=== PATIENT | female | born 1970 ===

== ENCOUNTER 2023-04-08 12:53 | Emergency (ER) | payer OTHER ==
[~2023-04-08] VITALS: Wt 112.5 kg
[2023-04-08] MEDS ORDERED: PENICILLIN-VK500 MG PO (14:20)
[2023-04-08] MEDS ORDERED: Motrin,Rufen800 MG PO (14:28)
== END 2023-04-08 14:44 | disposition home or self-care (01) ==
LOC: ED 12:53
DX: K06.9 Disorder of gingiva and edentulous alveolar ridge, unspecified (principal); I10 Essential (primary) hypertension

== ENCOUNTER 2025-05-03 15:22 | Emergency (ER) | payer OTHER ==
[~2025-05-03] VITALS: Ht 147.3 cm; Wt 107.0 kg
[~2025-05-03 15:22] MED LIST: Motrin,Rufen800 MG PO; PENICILLIN-VK500 MG PO
== END 2025-05-03 18:18 | disposition home or self-care (01) ==
LOC: ED 15:22
DX: M25.561 Pain in right knee (principal); I10 Essential (primary) hypertension; E11.9 Type 2 diabetes mellitus without complications